=== PATIENT | male | born 1940 | race Caucasian/White ===

== ENCOUNTER 2018-09-16 09:04 | Emergency (ER) | payer OTHER ==
--- OUTSIDE RECORDS SUMMARY | 2018-09-16 09:07 | XMS REPORT | Clinical Summary ---
:1940 Author Organization [facility] Address [address] [place] [address] Care Team Providers Name Role Phone Filiberto Quevedo MD Primary Care Provider Allergies No Known Allergies Medications Not on file Active Problems Not on file Encounters Date Type Specialty Care Team Description 03/24/2018 Hospital Encounter Radiology Scar Blanton MD 03/24/2018 Hospital Encounter Radiology Scar Blanton Parkinson disease MD 01/04/2018 Transcribe Orders Access Scar Blanton Parkinson disease MD (Primary Dx) after 09/15/2017 Social History Tobacco Use Types Packs/Day Years Used Date Never Assessed Sex Assigned at Date Recorded Not on file Job Start Date Occupation Industry Not on file Not on file Not on file Travel History Travel Start Travel End No recent travel history available. Last Filed Vital Signs Not on file Plan of Treatment Health Maintenance Due Date Last Done Comments SHINGLES VACCINES (#1) 1991 65+ PNEUMOCOCCAL VACCINE (1 of 2 - PCV13) 2006 PNEUMOCOCCAL POLYSACCHARIDE VACCINE AGE 65 AND OVER 2006 INFLUENZA VACCINE 02/08/2018 Procedures Procedure Name Priority Date/Time Associated Diagnosis Comments NM BRAIN SPECT W I Routine 03/24/2018 3:42 PM Parkinson disease Results for this 123 DATSCAN CDT procedure are in the results section. after 09/15/2017 Results NM Brain Spect W I 123 Datscan (03/24/2018 3:42 PM CDT) Narrative Performed At PROCEDURE:NM BRAIN SPECT W I 123 DATSCAN [facility] INDICATION:Parkinson's disease. TECHNIQUE: The patient was pretreated with potassium iodide drops for thyroid protection and then injected with 4 mCi of I-123 DaTscan IV. Brain SPECT imaging was then performed. FINDINGS:Borderline reduced uptake is noted in the posterior right striatum.Uptake on the left side appears normal. IMPRESSION: 1.Borderline abnormal study, which may reflect a mild or early primary Parkinsonian syndrome.There is no evidence for an advanced Parkinsonian syndrome. [facility]-[id number] Procedure Note Interface, Radiology Results Incoming - 03/24/2018 5:57 PM CDT PROCEDURE: NM BRAIN SPECT W I 123 DATSCAN INDICATION: Parkinson's disease. TECHNIQUE: The patient was pretreated with potassium iodide drops for thyroid protection and then injected with 4 mCi of I-123 DaTscan IV. Brain SPECT imaging was then performed. FINDINGS: Borderline reduced uptake is noted in the posterior right striatum. Uptake on the left side appears normal. IMPRESSION: 1. Borderline abnormal study, which may reflect a mild or early primary Parkinsonian syndrome. There is no evidence for an advanced Parkinsonian syndrome. [facility]-[id number] Performing Organization Address City/State/Zipcode Phone Number [facility] [address] [place] [address] after 09/15/2017 Insurance Payer Benefit Plan / Group Subscriber ID Type Phone Address [employer] MED[employer]ARE HU[employer] MEDICARE PPO/PFFS/ERS [facility] xxxxxxxxx PPO Advance Directives Patient has advance care planning documents on file. For more information, please contact:[facility] [address] [place] [address]
[2018-09-16] MEDS ORDERED: TETANUS & DIPHTHERIA TOX,ADULT 0.5 ML VIAL ONE (09:31)
[2018-09-16 09:37] LABS: Absolute Lymphocytes (CBC) 2.6 K/uL (0.7-4.9); Absolute Monocytes 0.4 K/uL (0.1-1.3); Absolute Neutrophil 4.5 K/uL (1.8-8.0); Basophils % 0.6 % (0-1.3); Eosinophils % 1.6 % (0-4.4); Hematocrit 38.7 % (39.6-49.0); Lymphocytes % 33.4 % (15.3-44.8); MPV 8.3 fL (7.6-11.3); Monocytes % 5.2 % (3.3-12.3); RBC Red Blood Cell Count 4.38 M/uL (4.33-5.43)
--- NOTE | 2018-09-16 09:55 | RAD REPORT ---
EXAM DESCRIPTION: CT - CTHCSPWOC - 09/16/2018 9:41 am CLINICAL HISTORY: Fall, head, neck and facial injury COMPARISON: CT head August 2017. TECHNIQUE: Axial 5 mm thick images of the head were obtained. Axial 2 mm thick images of the cervic al spine were obtained with sagittal and coronal reconstruction images generated and reviewed. All CT scans are performed using dose optimization technique as appropriate and may include automated exposure control or mA/KV adjustment according to patient size. FINDINGS: No epidural or subdural hematoma present. There is a small focus of acute hemorrhage along the cortex lateral left frontal lobe. This cortical contusion or subarachnoid hemorrhage is non seen elsewhere. No cortical edema or sulcal effacement. Significant underlying atrophy and chronic ischemic changes are present. Ventricles are in proportion to the amount of volume loss. No extra-axial fluid collecti ons. Mastoid air cells and paranasal sinuses are clear. Sandoval artifact is present from cochlear impla nt on the right side. Sinuses and facial bones are separately detailed. Cervical body height and alignment are normal. C3-4 and C5-6 disc space narrowing seen with endplate spurring. Degenerative change present at the dens anterior arch C1 level. Significant bony foraminal encroachment is present at C3-4 and on the left at C4-5. Moderate foraminal encroachment bilateral at C5-6. No fracture or acute bony abnormality. Central canal detail is inherently limited. No paraspinal mass or hematoma. IMPRESSION: Small focus 12 mm of posttraumatic subarachnoid hemorrhage or cortical contusion lateral left frontal lobe. No epidural or subdural hematoma. Negative CT cervical spine examination for acute or significant finding. Orbits, facial bones and sinuses are separately detailed.
--- NOTE | 2018-09-16 09:58 | RAD REPORT ---
EXAM DESCRIPTION: CT - Facial Bones W/ Mpr - 09/16/2018 9:41 am CLINICAL HISTORY: Fall, left-sided facial trauma, periorbital injury on the left COMPARISON: None. TECHNIQUE: Axial 2 millimeter thick images of the facial bones were obtained with sagittal and coron al reconstruction imaging. All CT scans are performed using dose optimization technique as appropriate and may include automated exposure control or mA/KV adjustment according to patient size. FINDINGS: No mandible fracture identified. Condyles are normally positioned. No acute mastoid or par anasal sinus finding. No facial bone fracture identified. There is moderate scalp hematoma over the l eft frontal bone and left orbit. No foreign body seen. No globe or orbital content injury identified. IMPRESSION: Moderate scalp hematoma left frontal bone and left periorbital region. No foreign body. No facial bone fracture.
--- NOTE | 2018-09-16 10:00 | RAD REPORT ---
EXAM DESCRIPTION: RAD - Chest Single View - 09/16/2018 9:49 am CLINICAL HISTORY: Cough COMPARISON: January 2016 TECHNIQUE: AP portable chest image was obtained 0946 hours . FINDINGS: Lung volumes are low. No focal lung parenchymal process. No failure or volume overload. He art and vasculature are normal. No measurable pleural effusion and no pneumothorax. No acute bony abn ormality seen. No acute aortic findings suspected. IMPRESSION: No acute cardiopulmonary process. No significant change from comparison.
[2018-09-16 10:01] LABS: ALT/SGPT 8 U/L (12-78); AST/SGOT 9 U/L (15-37); Albumin 3.3 g/dL (3.4-5.0); Alkaline Phosphatase 77 U/L (45-117); BUN Blood Urea Nitrogen 16 mg/dL (7-18); Bicarbonate 27 mmol/L (21-32); Bilirubin Direct 0.2 mg/dL (0-0.2); Bilirubin Total 0.7 mg/dL (0.2-1.0); Glucose Level 103 mg/dL (74-106); Lipase 213 U/L (73-393); Magnesium 2.1 mg/dL (1.8-2.4); NT PRO-BNP 259 pg/mL (<450); Potassium 3.5 mmol/L (3.5-5.1); Protein, Total 6.8 g/dL (6.4-8.2); Sodium Level 144 mmol/L (136-145); Troponin (Emerg Dept Use Only) < 0.02 ng/mL (0.0-0.045)
--- NOTE | 2018-09-16 10:06 | EDPHYS ---
Physician Documentation [facility] Name: Ant Phan Age: 78 yrs Sex: Male : 1940 Arrival Date: 09/16/2018 Time: 09:08 Bed 6 Private MD: ED Physician Shen Bennett HPI: 09/16 09:18 This 78 yrs old Male presents to ER via EMS with complaints of Fall Injury, marco Head Injury Without LOC-Adult. 09:18 Details of fall: The patient fell from an upright position, while walking. Onset: The marco symptoms/episode began/occurred just prior to arrival. Associated injuries: The patient sustained injury to the head, forehead, left ear, left cheek, left eye and left uatsdin. Associated injuries: The patient sustained. Severity of symptoms: At their worst the symptoms were mild, moderate, in the emergency department the symptoms have improved, moderately. The patient has not experienced similar symptoms in the past. Historical: - Allergies: 09:16 No Known Drug Allergies; sv - PMHx: 09:16 Alzheimers; Dementia; sv - PSHx: 09:16 Hernia repair; Cochlear implant; Appendectomy; sv - Immunization history:: Adult Immunizations unknown. - Social history:: Smoking status: Patient/guardian denies using tobacco. - Immunization history: Last tetanus immunization: unknown. - Family history:: not pertinent. - Ebola Screening: : Unable to complete screening because patient does not understand, hx Alzheimer's/Dementia. ROS: 09:18 Constitutional: Negative for fever, chills, and weight loss, Eyes: Negative for injury, marco pain, redness, and discharge, ENT: Negative for injury, pain, and discharge, Neck: Negative for injury, pain, and swelling, Cardiovascular: Negative for chest pain, palpitations, and edema, Respiratory: Negative for shortness of breath, cough, wheezing, and pleuritic chest pain, Abdomen/GI: Negative for abdominal pain, nausea, vomiting, diarrhea, and constipation, Back: Negative for injury and pain, : Negative for injury, bleeding, discharge, and swelling, MS/Extremity: Negative for injury and deformity, Neuro: Negative for headache, weakness, numbness, tingling, and seizure, Psych: Negative for depression, anxiety, suicide ideation, homicidal ideation, and hallucinations, Allergy/Immunology: Negative for hives, rash, and allergies, Endocrine: Negative for neck swelling, polydipsia, polyuria, polyphagia, and marked weight changes, Hematologic/Lymphatic: Negative for swollen nodes, abnormal bleeding, and unusual bruising. 09:18 Skin: Positive for abrasion(s), swelling, of the face and left uatsdin and left eye and left cheek and forehead. Exam: 09:18 Constitutional: This is a well developed, well nourished patient who is awake, alert, marco and in no acute distress. Eyes: Pupils equal round and reactive to light, extra-ocular motions intact. Lids and lashes normal. Conjunctiva and sclera are non-icteric and not injected. Cornea within normal limits. Periorbital areas with no swelling, redness, or edema. ENT: Nares patent. No nasal discharge, no septal abnormalities noted. Tympanic membranes are normal and external auditory canals are clear. Oropharynx with no redness, swelling, or masses, exudates, or evidence of obstruction, uvula midline. Mucous membranes moist. Neck: Trachea midline, no thyromegaly or masses palpated, and no cervical lymphadenopathy. Supple, full range of motion without nuchal rigidity, or vertebral point tenderness. No Meningismus. Chest/axilla: Normal chest wall appearance and motion. Nontender with no deformity. No lesions are appreciated. Cardiovascular: Regular rate and rhythm with a normal S1 and S2. No gallops, murmurs, or rubs. Normal PMI, no JVD. No pulse deficits. Respiratory: Lungs have equal breath sounds bilaterally, clear to auscultation and percussion. No rales, rhonchi or wheezes noted. No increased work of breathing, no retractions or nasal flaring. Abdomen/GI: Soft, non-tender, with normal bowel sounds. No distension or tympany. No guarding or rebound. No evidence of tenderness throughout. Back: No spinal tenderness. No costovertebral tenderness. Full range of motion. MS/ Extremity: Pulses equal, no cyanosis. Neurovascular intact. Full, normal range of motion. Neuro: Awake and alert, GCS 15, oriented to person, place, time, and situation. Cranial nerves II-XII grossly intact. Motor strength 5/5 in all extremities. Sensory grossly intact. Cerebellar exam normal. Normal gait. Psych: Awake, alert, with orientation to person, place and time. Behavior, mood, and affect are within normal limits. 09:18 Head/face: Noted is abrasion(s), contusion, swelling, that is moderate, of the forehead, left ear, left cheek, left eye and left uatsdin. Vital Signs: 09:02 BP 165 / 90; Pulse 70; Resp 16; Temp 98.2; Pulse Ox 100% ; Pain 0/10; sv 09:56 BP 166 / 94; Pulse 63; Resp 16; Temp 98.2; Pulse Ox 95% on R/A; sv 10:35 BP 161 / 86; Pulse 63; Resp 16; Pulse Ox 93% ; ms Lincoln Coma Score: 09:02 Eye Response: spontaneous(4). Verbal Response: confused(4). Motor Response: obeys sv commands(6). Total: 14. 09:56 Eye Response: spontaneous(4). Verbal Response: confused(4). Motor Response: obeys sv commands(6). Total: 14. Trauma Score (Adult): 09:02 Eye Response: spontaneous(1); Verbal Response: confused(1); Motor Response: obeys sv commands(2); Systolic BP: > 89 mm Hg(4); Respiratory Rate: 10 to 29 per min(4); Lincoln Score: 14; Trauma Score: 12 09:56 Eye Response: spontaneous(1); Verbal Response: confused(1); Motor Response: obeys sv commands(2); Systolic BP: > 89 mm Hg(4); Respiratory Rate: 10 to 29 per min(4); Jhoana Score: 14; Trauma Score: 12 MDM: 09:08 Patient medically screened. [facility] 09:22 Data reviewed: vital signs, nurses notes, lab test result(s), EKG, radiologic studies, [facility] CT scan, plain films. 09/16 09:17 Order name: Basic Metabolic Panel [facility] 09/16 09:17 Order name: CBC with Diff [facility] 09/16 09:17 Order name: LFT's [facility] 09/16 09:17 Order name: Magnesium; Complete Time: 10:39 [facility] 09/16 09:17 Order name: NT PRO-BNP; Complete Time: 10:39 [facility] 09/16 09:17 Order name: PT-INR; Complete Time: 10:39 [facility] 09/16 09:17 Order name: Troponin (emerg Dept Use Only); Complete Time: 10:39 [facility] 09/16 09:17 Order name: Lipase; Complete Time: 10:39 [facility] 09/16 09:17 Order name: Basic Metabolic Panel; Complete Time: 10:39 EDMS 09/16 09:17 Order name: CBC with Automated Diff; Complete Time: 10:39 EDMS 09/16 09:17 Order name: Liver (Hepatic) Function; Complete Time: 10:39 EDMS 09/16 09:23 Order name: Type And Screen; Complete Time: 10:39 [facility] 09/16 10:25 Order name: ABO/RH no charge; Complete Time: 10:39 EDMS 09/16 09:17 Order name: XRAY Chest (1 view); Complete Time: 10:39 [facility] 09/16 09:17 Order name: EKG; Complete Time: 09:18 [facility] 09/16 09:17 Order name: Cardiac monitoring; Complete Time: 09:18 [facility] 09/16 09:17 Order name: EKG - Nurse/Tech; Complete Time: 09:18 [facility] 09/16 09:17 Order name: IV Saline Lock; Complete Time: 09:18 [facility] 09/16 09:17 Order name: Labs collected and sent; Complete Time: 09:18 [facility] 09/16 09:17 Order name: O2 Per Protocol; Complete Time: 09:18 [facility] 09/16 09:17 Order name: O2 Sat Monitoring; Complete Time: 09:18 [facility] 09/16 09:17 Order name: CT Head C Spine; Complete Time: 10:00 [facility] 09/16 09:17 Order name: CT Facial Bones W/O Con; Complete Time: 10:00 [facility] 09/16 09:17 Order name: Wound Care; Complete Time: 09:17 [facility] 09/16 10:28 Order name: CBC Smear Scan; Complete Time: 10:39 EDMS 09/16 09:18 Order name: Ice pack; Complete Time: 10:07 [facility] EC:18 Rhythm is regular. QRS [place] is Normal. [place] interval is normal. QRS interval is normal. marco QT interval is prolonged. No Q waves. ST Segment is depressed in leads V1, V2, V3, V4, 1-2mm. 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 Exp: sv 08/24/2020. Lot #: [id number]. } Route: IM; Site: right deltoid; 10:07 Follow up: Response: No adverse reaction sv 09:29 Drug: Neosporin Ointment 1 application Route: Topical; Site: affected area; sv 10:32 Drug: NS 0.9% 1000 ml Route: IV; Rate: 125 ml/hr; Site: right forearm; sv 10:32 Drug: Keppra 1000 mg Route: IV; Rate: per protocol; Site: right forearm; sv 11:20 Follow up: Response: No adverse reaction; IV Status: Completed infusion; IV Intake: sv 100ml Disposition: 09/16/18 10:[address] [facility]. Diagnosis are Fall due to bumping against object, Dementia in other diseases classified elsewhere, Traumatic subarachnoid hemorrhage without loss of consciousness. - Reason for transfer: Higher level of care. - Accepting physician is to [facility] , neuro. - Condition is Fair. - Problem is new. - Symptoms have improved. Signatures: Dispatcher [employer] Mirian Carrasquillo RN RN Shen Ruiz MD MD cha Smirch, Shelby, RN RN ss Corrections: (The following items were deleted from the chart) 11:25 10:05 09/16/2018 10:[address] [facility]. Diagnosis is ss Fall due to bumping against object; Dementia in other diseases classified elsewhere; Traumatic subarachnoid hemorrhage without loss of consciousness. Reason for transfer: Higher level of care. Accepting physician is to [facility] , neuro. Condition is Fair. Problem is new. Symptoms have improved. marco
--- NOTE | 2018-09-16 10:06 | ER ---
Nurse's Notes [facility] Name: Ant Phan Age: 78 yrs Sex: Male : 1940 Arrival Date: 09/16/2018 Time: 09:08 Bed 6 Private MD: Diagnosis: Fall due to bumping against object;Dementia in other diseases classified elsewhere;Traumatic subarachnoid hemorrhage without loss of consciousness Presentation: 09/16 09:02 Presenting complaint: EMS states: witnessed fall by family. Pt was outside and fell sv down in the mud, left forehead/eyebrow hematoma with abrasions. (-) LOC, no vomiting. Pt was agitated on seen but has hx of Alzheimer's and Dementia. BP 154/90 BS-124 Temp 98.6. Care prior to arrival: IV initiated. 20 GA, in the right forearm, Glucose check: 124. Mechanism of Injury: Fall from standing position. Trauma event details: Injury occurred in the [facility], Injury occurred: at home. Injury occurred: September 16, 2018. 09:02 Acuity: TING 2 sv 09:02 Method Of Arrival: EMS: [facility] sv 09:17 Transition of care: patient was not received from another setting of care. Onset of sv symptoms was September 16, 2018. Risk Assessment: Do you want to hurt yourself or someone else? Patient reports no desire to harm self or others. Initial Sepsis Screen: Does the patient meet any 2 criteria? No. Patient's initial sepsis screen is negative. Does the patient have a suspected source of infection? No. Patient's initial sepsis screen is negative. Trauma Activation: Alert Physician: ED Physician; Name: Dr Bennett; Notified At: 08:51; Arrived At: 08:51 Physician: General Surgeon; Name: ; Notified At: 08:51; Arrived At: Physician: Radiology; Name: Martha Potter; Notified At: 08:51; Arrived At: 08:51 Physician: Respiratory; Name: ; Notified At: 08:51; Arrived At: Physician: Lab; Name: ; Notified At: 08:51; Arrived At: 08:51 Primary RN: Mirian RN, Secondary RN: Sherri, water filtration technician: Jaycee, Business Services Officer: Heatherthsv Historical: - Allergies: 09:16 No Known Drug Allergies; sv - PMHx: 09:16 Alzheimers; Dementia; sv - PSHx: 09:16 Hernia repair; Cochlear implant; Appendectomy; sv - Immunization history:: Adult Immunizations unknown. - Social history:: Smoking status: Patient/guardian denies using tobacco. - Immunization history: Last tetanus immunization: unknown. - Family history:: not pertinent. - Ebola Screening: : Unable to complete screening because patient does not understand, hx Alzheimer's/Dementia. Screenin:02 Abuse screen: Denies threats or abuse. Denies injuries from another. Tuberculosis sv screening: No symptoms or risk factors identified. 09:33 Nutritional screening: No deficits noted. Fall Risk No fall in past 12 months (0 pts). sv Secondary diagnosis (15 points) Alzheimer's, dementia, IV access (20 points). Ambulatory Aid- None/Bed Rest/Nurse Assist (0 pts). Gait- Normal/Bed Rest/Wheelchair (0 pts) Mental Status- Overestimates/Forgets Limitations (15 pts.). Total Ogden Fall Scale indicates High Risk Score (45 or more points). Fall prevention measures have been instituted. Side Rails Up X 2 Placed Close to Nursing Station Frequent Obs/Assessments Occuring As available patient and family educated on Fall Prevention Program and Strategies. Primary Survey: 09:02 NO uncontrolled hemorrhage observed. A: The patient is alert. Airway: patent, No sv supplemental oxygen in use on arrival. Oral cavity: clear, Trachea midline. Breathing/Chest: Respiratory pattern: regular, Respiratory effort: spontaneous, unlabored, Chest inspection: symmetrical rise and fall of the chest. Circulation: Skin color: pink, Skin temperature: warm, dry. Disability Alert. Exposure/Environment: All clothing and personal items were removed. Forensic evidence collection is not deemed to be indicated at this time. Items placed in patient belonging bag. There is no evidence of uncontrolled external bleeding. Obvious injury(ies) are noted at this time: hematoma/laceration to left eyebrow/forehead area, left anterior shoulder abrasion. A warming method has been applied: A warm blanket has been provided to the patient. 09:57 Reassessment Airway Airway Patent Oxygen No O2 Oral cavity Clear Trachea Midline sv Breathing/Chest Respiratory pattern Regular Respiratory effort Spontaneous Unlabored Chest inspection Symmetrical Circulation Heart rhythm Sinus rhythm Heart tones Present Pulses Palpable Color Volant Temperature Warm Dry Disability Alert. Secondary Survey: 09:02 HEENT: Head Other hematoma/laceration to left eyebrow/forehead. Gastrointestinal: No sv deficits noted. : No deficits noted. No signs and/or symptoms were reported regarding the genitourinary system. Musculoskeletal: No deficits noted. No signs and/or symptoms reported regarding the musculoskeletal system. Assessment: 09:15 Reassessment: Pt cleaned of mud that was on his legs and placed in a gown. sv 11:11 Reassessment: Patient appears in no apparent distress at this time. Patient and/or sv family updated on plan of care and expected duration. Pain level reassessed. Report given to Ross from EMS. Neuro: Level of Consciousness is awake, alert, obeys commands, confused, Oriented to person. Respiratory: Respiratory effort is even, unlabored, Respiratory pattern is regular, symmetrical. Vital Signs: 09:02 BP 165 / 90; Pulse 70; Resp 16; Temp 98.2; Pulse Ox 100% ; Pain 0/10; sv 09:56 BP 166 / 94; Pulse 63; Resp 16; Temp 98.2; Pulse Ox 95% on R/A; sv 10:35 BP 161 / 86; Pulse 63; Resp 16; Pulse Ox 93% ; ms Belmont Coma Score: 09:02 Eye Response: spontaneous(4). Verbal Response: confused(4). Motor Response: obeys sv commands(6). Total: 14. 09:56 Eye Response: spontaneous(4). Verbal Response: confused(4). Motor Response: obeys sv commands(6). Total: 14. Trauma Score (Adult): 09:02 Eye Response: spontaneous(1); Verbal Response: confused(1); Motor Response: obeys sv commands(2); Systolic BP: > 89 mm Hg(4); Respiratory Rate: 10 to 29 per min(4); Jhoana Score: 14; Trauma Score: 12 09:56 Eye Response: spontaneous(1); Verbal Response: confused(1); Motor Response: obeys sv commands(2); Systolic BP: > 89 mm Hg(4); Respiratory Rate: 10 to 29 per min(4); Belmont Score: 14; Trauma Score: 12 ED Course: 09:02 Patient has correct armband on for positive identification. Placed in gown. Bed in low sv position. Call light in reach. Side rails up X2. 09:02 Patient maintains SpO2 saturation greater than 95% on room air. sv 09:02 Maintain EMS IV. Dressing intact. Good blood return noted. Site clean \T\ dry. Gauge \T\ sv site: 20G R FA. 09:08 Patient arrived in ED. sv 09:08 Shen Bennett MD is Attending Physician. marco 09:09 Mirian Valencia RN is Primary Nurse. sv 09:10 Arm band placed on. sv 09:13 Triage completed. sv 09:15 Thermoregulation: warm blanket given to patient. sv 09:20 Wound care: to abrasion, located on left side of forehead, left eye, left jain, left sv zygomatic area and anterior aspect of left shoulder was cleaned with with NS and gauze, dressed with Neosporin, Patient tolerated well. 09:29 Basic Metabolic Panel Sent. sv 09:29 CBC with Diff Sent. sv 09:29 LFT's Sent. sv 09:[address] via stretcher. sv 09:41 CT Head C Spine In Process Unspecified. EDMS 09:41 CT Facial Bones W/O Con In Process Unspecified. EDMS 09:43 CT completed. Patient tolerated procedure well. Patient moved to radiology. mw3 09:48 X-ray completed. Patient tolerated procedure well. sg4 09:49 XRAY Chest (1 view) In Process Unspecified. EDMS 09:55 Patient moved back from radiology. sv 10:[address] Bennett with Grecia Wayne RN at the [facility] transfer eb center. 10:[address] Yan the neurologist television repairman from [facility] with Dr. Bennett for eb patient transfer consultation. 10:35 administrative approval given by Grecia Wayne RN/ pt is going to [address] [place] [id number] [id number]/ Dr. dunia Yan has accepted the patient in transfer/ report to be called to [phone]. 11:12 No provider procedures requiring assistance completed. Patient transferred, IV remains sv in place. intact. Administered Medications: 09:28 Drug: Tetanus-Diphtheria Toxoid Adult 0.5 ml {Charge Entry: [employer]. Exp: sv 08/24/2020. Lot #: [id number]. } Route: IM; Site: right deltoid; 10:07 Follow up: Response: No adverse reaction sv 09:29 Drug: Neosporin Ointment 1 application Route: Topical; Site: affected area; sv 10:32 Drug: NS 0.9% 1000 ml Route: IV; Rate: 125 ml/hr; Site: right forearm; sv 10:32 Drug: Keppra 1000 mg Route: IV; Rate: per protocol; Site: right forearm; sv 11:20 Follow up: Response: No adverse reaction; IV Status: Completed infusion; IV Intake: sv 100ml Intake: 09:02 PO: 0ml; Total: 0ml. sv 09:56 PO: 0ml; Total: 0ml. sv 11:20 IV: 100ml; Total: 100ml. sv Output: 09:02 Urine: 0ml; Total: 0ml. sv 09:56 Urine: 0ml; Total: 0ml. sv Outcome: 10:05 ER care complete, transfer ordered by . marco 10:52 Transferred by ground EMS to [facility], Transfer form completed. sv X-rays sent w/ patient. Note: Report given to Wan NUNEZ at [facility]. 10:52 Condition: stable 10:52 Instructed on the need for transfer. 11:12 Patient's length of stay was not longer than 2 hours. sv 11:25 Patient left the ED. Signatures: Dispatcher [employer] Mirian Carrasquillo RN RN Shen Bennett MD MD cha Solis, Maria ms Smirch, Shelby, RN RN Verónica Juarez Michelle mw3 Donald, Danita sg4 Corrections: (The following items were deleted from the chart) 09:30 09:02 Presenting complaint: EMS states: witnessed fall by family. Pt was outside and sv fell down in the mud, left forehead/eyebrow hematoma with laceration. (-) LOC, no vomiting. Pt was agitated on seen but has hx of Alzheimer's and Dementia. BP 154/90 BS-124 Temp 98.6. sv 09:32 09:02 Exposure/Environment: All clothing and personal items were removed. Forensic sv evidence collection is not deemed to be indicated at this time. Items placed in patient belonging bag. There is no evidence of uncontrolled external bleeding. Obvious injury(ies) are noted at this time: hematoma/laceration to left eyebrow/forehead area A warming method has been applied: A warm blanket has been provided to the patient. sv 11:07 08:51 Trauma Activation: Alert; ED Physician Dr Bennett; Radiology Martha Potter; Primary RN: Mirian NUNEZ, Secondary RN: Sherri, water filtration technician: Jaycee, Business Services Officer: Verónica lai
[2018-09-16] MEDS ORDERED: levETIRAcetam 1,000 MG in NA CHLORIDE 0.9% 100 ML IV ONE (10:15)
[2018-09-16 10:23] LABS: Protime INR 1.06
[2018-09-16 10:28] LABS: Blood Morphology Comment NOT SEEN (NOT SEEN); Platelet Estimate ADEQ; Urine White Blood Cell Casts OK
[2018-09-16] MEDS ORDERED: NA CHLORIDE 0.9% 500 ML ONE (10:37)
[2018-09-16 11:31] VITALS: TEMP 98.2
[2018-09-16 11:32] VITALS: BP 161/86; O2SAT 93
--- NOTE | 2018-09-17 05:56 | EKG ---
Test Date: 2018-09-16 Test Time: 09:15:05 Warehouse Shipping Associate: MEASUREMENT RESULTS: Intervals: Rate: 64 AL: 198 QRSD: 104 QT: 480 QTc: 495 [place]: P: 25 AL: 198 QRS: 90 T: 26 INTERPRETIVE STATEMENTS: Normal sinus rhythm Incomplete right bundle branch block ST & T wave abnormality, consider anterior ischemia Prolonged QT Abnormal ECG Compared to ECG 05/08/2018 11:44:58 ST (T wave) deviation now present prolonged QT interval now present Myocardial infarct finding no longer present Electronically Signed On 09-17-18 05:55:59 CDT by Alvin Arguello
== END 2018-09-16 11:25 | disposition short-term general hospital (02) ==
LOC: ER 09:04
DX: S06.6X0A Traumatic subarachnoid hemorrhage without loss of consciousness, initial encounter (principal); W18.30XA Fall on same level, unspecified, initial encounter; Y93.01 Activity, walking, marching and hiking; Y92.9 Unspecified place or not applicable; G30.9 Alzheimer's disease, unspecified; F02.80 Dementia in other diseases classified elsewhere, unspecified severity, without behavioral disturbance, psychotic disturbance, mood disturbance, and anxiety; Z23 Encounter for immunization
CPT/HCPCS: 96365; 93005; 85025; 80048; 36415; 86900; 83735; 86850; 85610; 86901; 80076; 84484; 83690; 83880; 70450; 72125; 70486; 76377; 71045; 90714; 99285; J1953